=== PATIENT | female | born 1985 | race Caucasian/White ===

== ENCOUNTER → 2018-01-07 09:01 | Outpatient (CLI) | payer OTHER, SELFPAY ==
[2018-01-07 10:08] LABS: Alanine Aminotransferase 26 IU/L (9-52); Albumin 3.3 g/dL (3.5-5.0); Albumin Globulin Ratio 1.1 (1.0-2.8); Alkaline Phosphatase 133 U/L (38-126); Aspartate Aminotransferase 25 IU/L (14-36); BUN Creatinine Ratio 8.6 (6-22); Bilirubin Total 0.4 mg/dL (0.2-1.3); Calcium 9.3 mg/dL (8.4-10.2); Estimated Glomerular Filt Rate > 60.0 mL/min (>60); Globulin 2.9 g/dL (1.7-4.1); Glucose 81 mg/dL (70-100); HEMOLYSIS < 15 (0-50); Sodium 139 mmol/L (137-145); Total Protein 6.2 g/dL (6.3-8.2)
[2018-01-07 10:54] LABS: Creatinine Urine Random 26.8 mg/dL
[2018-01-07 11:01] LABS: Microalbumi Creatinin Ratio Ur 22.3 ug/mg CR (<30); Microalbumin Urine Random < 0.6 mg/dL (0-1.6)
== END ==
PROVIDERS: PCP Family Medicine; Visit Provider Family Medicine
DX: O16.3 Unspecified maternal hypertension, third trimester (principal); Z34.03 Encounter for supervision of normal first pregnancy, third trimester; Z3A.37 37 weeks gestation of pregnancy
CPT/HCPCS: 36415; 80053; 82043; 82570

== ENCOUNTER 2018-01-17 20:39 | Outpatient (CLI) | payer OTHER, SELFPAY ==
[2018-01-17] MEDS: ZOLPIDEM 5 MG TABLET PO (23:00)
[2018-01-17] MEDS: OXYCODONE/ACETAMINOPHEN 5/325 TABLET 1 TAB PO (23:00)
== END 2018-01-17 23:00 | disposition home or self-care (01) ==
LOC: LABOR 23:48 → OB 01-18 08:52
PROVIDERS: PCP Family Medicine; Visit Provider Family Medicine
DX: Z34.03 Encounter for supervision of normal first pregnancy, third trimester (principal); Z3A.39 39 weeks gestation of pregnancy
CPT/HCPCS: 59025; 59050; G0378; G0379

== ENCOUNTER 2018-01-18 21:10 | Inpatient (IN) | payer OTHER, SELFPAY ==
[2018-01-18 23:31] LABS: Add Manual Diff / Slide Review NO; Basophils Percent Auto 0.2 % (0-2); Eosinophils Percent Auto 0.3 % (2-4); Hematocrit 34.2 % (36-46); Lymphocytes Percent Auto 10.8 % (25-40); Mean Corpuscular HGB Conc 35.1 % (30-36); Mean Corpuscular Hemoglobin 33.9 PG (26-34); Mean Corpuscular Volume 96.6 fL (80-100); Neutrophils Absolute Auto 7800 /uL (3000-5900); Neutrophils Percent Auto 81.7 % (50-75); Platelet Count 231 X10^3/uL (150-400); Red Blood Cell Count 3.54 X10^6/uL (4.0-5.2); Red Cell Distribution Width 13.9 % (11.6-14.8); White Blood Cell Count 9.5 X10^3/uL (4.5-11.0)
[2018-01-18 23:53] VITALS: BP 141/83
[2018-01-19] MEDS: fentaNYL 100 MCG/2 ML INJ 50 MCG IV (03:25)
[2018-01-19] MEDS: LACTATED RINGERS 1,000 ML 100 ML IV (07:22)
[2018-01-19] MEDS: miSOPROStol 200 MCG TABLET 800 MCG PR (16:45)
--- NOTE | 2018-01-19 16:51 | PM.OBHP.1 ---
OB HPI History of Present Illness Chief complaint: LABOR AND DELIVERY Narrative: Martita Beltran is a 32 year old female who presents at 39 and 2 7 weeks gestation in spontaneous labor. Maternal history is significant for a blood type of O positive, antibody negative, rubella immune, serology nonreactive, gonorrhea and Chlamydia negative hepatitis B negative, group B strep negative HIV negative with otherwise unremarkable history. Patient was intact at the time of presentation. Evaluation Evaluation Laboratory results: Laboratory Tests 01/18/18 01/18/18 23:15 23:15 WBC 9.5 RBC 3.54 L Hgb 12.0 Hct 34.2 L MCV 96.6 MCH 33.9 MCHC 35.1 RDW 13.9 Plt Count 231 Neut % (Auto) 81.7 H Lymph % (Auto) 10.8 L [place] % (Auto) 7.0 Eos % (Auto) 0.3 L Baso % (Auto) 0.2 Neut # (Auto) 7800 H Blood Type O Positive Antibody Screen Negative [facility] Medical History Ruptured ovarian cyst (Acute) Social History marital status: household members: spouse lives independently: Yes education level: college occupational status: employed Smoking Status: Never smoker Meds Home Medications Medication Instructions Recorded Confirmed Type breast pump [Pump In Style 01/18/18 01/18/18 History Advanced] Allergies Allergy/AdvReac Type Severity Reaction Status Date / Time No Known Drug Allergies Allergy Verified 01/17/18 23:56 Review of Systems Review of Systems All systems reviewed & are unremarkable except as noted in HPI and below Exam Vital Signs (past 8 hours): GENERAL: Well-developed well-nourished woman, who had received epidural at the time of this exam, comfortable HEENT: Normocephalic, atraumatic, pupils equal and reactive to light and accommodation. Extraocular movements are intact. Tympanic membranes are clear without erythema. Neck supple, no lymphadenopathy. LUNG: Clear to auscultation bilaterally. No wheeze or crackles or rhonchi. No increased work in breathing. CV: Regular rate and rhythm. No murmurs rubs or gallops. ABDOMEN: GRAVID AFFECT: Alert and oriented X3. Conversational and appropriate. Sterile vaginal exam: Patient was 6-7 at 9:00 a.m. in the morning, 90% effaced, -2 station heart rate was category 2 Artificial rupture of membranes at this time, with return of clear fluid Objective Labs Result Diagrams: 01/18/18 23:15 Labs: Laboratory Results - last 24 hr 01/18/18 01/18/18 23:15 23:15 WBC 9.5 RBC 3.54 L Hgb 12.0 Hct 34.2 L MCV 96.6 MCH 33.9 MCHC 35.1 RDW 13.9 Plt Count 231 Neut % (Auto) 81.7 H Lymph % (Auto) 10.8 L [place] % (Auto) 7.0 Eos % (Auto) 0.3 L Baso % (Auto) 0.2 Neut # (Auto) 7800 H Blood Type O Positive Antibody Screen Negative Assessment and Plan (1) Active labor at term: Problem details: TERM , IN ACTIVE LABOR. ANTICIPATE SPONTANEOUS VAGINAL DELIVERY. ARTIFICIAL RUPTURE OF MEMBRANES AT APPROXIMATELY 9:00 A.M. WITH RETURN OF CLEAR FLUID PITOCIN STARTED AT APPROXIMATELY 0 500 CONTRACTIONS WERE DECREASING IN FREQUENCY Current visit: Yes Status: Acute
[2018-01-19] MEDS: OXYTOCIN PREMIX 30 UNIT/500 ML PLAST..BAG 250 UNIT IV (17:00)
--- NOTE | 2018-01-19 17:49 | P.HPOB_ITS ---
OB HPI History of Present Illness Chief complaint: LABOR AND DELIVERY Narrative: Martita Beltran is a 32 year old female who presents at 39 and 2 7 weeks gestation in spontaneous labor. Maternal history is significant for a blood type of O positive, antibody negative, rubella immune, serology nonreactive, gonorrhea and Chlamydia negative hepatitis B negative, group B strep negative HIV negative with otherwise unremarkable history. Patient was intact at the time of presentation. Evaluation Evaluation Laboratory results: Laboratory Tests 01/18/18 01/18/18 23:15 23:15 WBC 9.5 RBC 3.54 L Hgb 12.0 Hct 34.2 L MCV 96.6 MCH 33.9 MCHC 35.1 RDW 13.9 Plt Count 231 Neut % (Auto) 81.7 H Lymph % (Auto) 10.8 L [place] % (Auto) 7.0 Eos % (Auto) 0.3 L Baso % (Auto) 0.2 Neut # (Auto) 7800 H Blood Type O Positive Antibody Screen Negative [facility] Medical History Ruptured ovarian cyst (Acute) Social History marital status: household members: spouse lives independently: Yes education level: college occupational status: employed Smoking Status: Never smoker Meds Home Medications Medication Instructions Recorded Confirmed Type breast pump [Pump In Style 01/18/18 01/18/18 History Advanced] Allergies Allergy/AdvReac Type Severity Reaction Status Date / Time No Known Drug Allergies Allergy Verified 01/17/18 23:56 Review of Systems Review of Systems All systems reviewed & are unremarkable except as noted in HPI and below Exam Vital Signs (past 8 hours): GENERAL: Well-developed well-nourished woman, who had received epidural at the time of this exam, comfortable HEENT: Normocephalic, atraumatic, pupils equal and reactive to light and accommodation. Extraocular movements are intact. Tympanic membranes are clear without erythema. Neck supple, no lymphadenopathy. LUNG: Clear to auscultation bilaterally. No wheeze or crackles or rhonchi. No increased work in breathing. CV: Regular rate and rhythm. No murmurs rubs or gallops. ABDOMEN: GRAVID AFFECT: Alert and oriented X3. Conversational and appropriate. Sterile vaginal exam: Patient was 6-7 at 9:00 a.m. in the morning, 90% effaced , -2 station heart rate was category 2 Artificial rupture of membranes at this time, with return of clear fluid Objective Labs Result Diagrams: 01/18/18 23:15 Labs: Laboratory Results - last 24 hr 01/18/18 01/18/18 23:15 23:15 WBC 9.5 RBC 3.54 L Hgb 12.0 Hct 34.2 L MCV 96.6 MCH 33.9 MCHC 35.1 RDW 13.9 Plt Count 231 Neut % (Auto) 81.7 H Lymph % (Auto) 10.8 L [place] % (Auto) 7.0 Eos % (Auto) 0.3 L Baso % (Auto) 0.2 Neut # (Auto) 7800 H Blood Type O Positive Antibody Screen Negative Assessment and Plan (1) Active labor at term: Problem details: TERM , IN ACTIVE LABOR. ANTICIPATE SPONTANEOUS VAGINAL DELIVERY. ARTIFICIAL RUPTURE OF MEMBRANES AT APPROXIMATELY 9:00 A.M. WITH RETURN OF CLEAR FLUID PITOCIN STARTED AT APPROXIMATELY 0 500 CONTRACTIONS WERE DECREASING IN FREQUENCY Current visit: Yes Status: Acute
--- NOTE | 2018-01-19 17:55 | P.PCNOB_ITS ---
Narrative: Patient is a 32-year-old who presented in active labor. Patient is labor had started the evening prior. She had been seen in the labor and delivery suite the evening prior and was closed. At the time of presentation 12:00 p.m. later she was 4 cm dilated. She was admitted in active labor. Patient labored until approximately 0 5 am which she did receive an epidural. Her contractions slowed down substantially and oxytocin was started at that time and continued throughout labor. Artificial rupture of membrane was performed at approximately 9:00 a.m. with return of clear fluid. Patient continued to labor down without event until approximately 1:30 p.m. when she began stage II of labor. Patient pushed in multiple positions until approximately the 15 50. At that time it was felt that the patient was exhausted, and would benefit from vacuum assistance. Vacuum was applied without event and head was brought down to the perineum. Patient pushed several times without movement of the head the VAC was reapplied the head, and the remainder of the body was delivered without difficulty. Infant passed easily under the shoulders. Placenta delivered shortly there after. However, patient continued to have bleeding and after manual evacuation of the uterus, was found to have some remaining small pieces of placenta in the uterus. At that point, and due to significant bleeding, bivalve speculum was inserted, cervix was grasped with a ring forceps, and a large curette was used to gently remove remaining placental clot from the uterus. Patient tolerated this procedure well. Bleeding did decrease substantially after this. Patient sustained a labial tear which was repaired with 4 0 chromic, as well as a vaginal second-degree tear which was repaired with 3 0 chromic. Hemostasis was achieved. Patient tolerated the procedure well. Estimated blood loss approximately 400 cc Pitocin bolus given after delivery of . Patient also had 800 mcg of Cytotec administered per rectum due to bleeding. At the time of this dictation , bleeding had decreased substantially. Plan for aftercare: Patient to the center was care instructions.
[2018-01-19] MEDS: CEFOTETAN 2 GM/50 ML PIGGYBACK IV (18:18)
[2018-01-20] MEDS: IBUPROFEN 600 MG TABLET PO ×4 (02:56→19:18)
[2018-01-20] MEDS: DOCUSATE 250 MG CAPSULE PO (09:48)
[2018-01-20] MEDS: PRENATAL VIT,CALC/IRON/FOLIC 1 TABLET 1 TAB PO (09:48)
[2018-01-20] MEDS: LANOLIN OINT 7 GM 1 APPLIC TOP (12:57)
--- NOTE | 2018-01-20 15:10 | PM.DS.1 ---
History of Present Illness Chief complaint: LABOR AND DELIVERY Narrative: See below Discharge Providers Date of admission: 01/18/18 22:23 Primary care physician: Katie Lipscomb MD Discharge provider: Katie Lipscomb MD Summary Discharge Diagnosis: Status post spontaneous vaginal delivery Hospital Course: Martita Beltran is a 32 year old female who presented at 39 and 2 7 weeks gestation in spontaneous labor. Patient subsequently delivered a healthy female weighing 7 lb 6 oz with vacuum assistance due to maternal exhaustion. Apgars were 9 and 9. , Patient did require manual evacuation of the uterus, and a curette, due to a small amount of retained products. Bleeding did stop. On day 1. Bleeding was minimal. The patient was nursing well, and was felt safe to discharge home. Patient will be seen by primary care provider with her infant the day after discharge. Maternal history is significant for a blood type of O positive, antibody negative, rubella immune, serology nonreactive, gonorrhea and Chlamydia negative hepatitis B negative, group B strep negative HIV negative with otherwise unremarkable history. Patient was intact at the time of presentation. Exam Vital Signs (past 8 hours): GENERAL: Well-developed well-nourished woman in no acute distress. HEENT: Normocephalic, atraumatic, pupils equal and reactive to light and accommodation. Extraocular movements are intact. LUNG: Clear to auscultation bilaterally. No wheeze or crackles or rhonchi. No increased work in breathing. CV: Regular rate and rhythm. No murmurs rubs or gallops. ABDOMEN: SOFT APPROPRIATELY TENDER, AFFECT: Alert and oriented X3. Conversational and appropriate. Objective Labs Result Diagrams: 01/18/18 23:15 Discharge Plan Discharge Plan Patient Disposition: Home, Self-Care Discharge Med Rec/Prescriptions Prescriptions: New oxycodone-acetaminophen 5-325 mg Tablet 2 tab PO Q4HR Qty: 30 RF: 0 ibuprofen 600 mg Tablet 600 mg PO 3-4XD PRN (Reason: pain) Qty: 30 RF: 0 docusate sodium 250 mg Capsule 250 mg PO DAILY Qty: 30 RF: 0 No Action breast pump [Pump In Style Advanced] device .ROUTE .MEDSUPPLY RF: 0 Provider Discharge Instructions Diet: Diet as Tolerated Activity: as tolerated Visit Report/Discharge Packet Instructions: DI for Labor and Delivery, Vaginal Visit Report Forms: Stroke Signs & Symptoms Discharge Data Primary Care Provider: Lindsay Moore Attending Provider: Katie Lipscomb Admreese Date/Time: 01/18/18 22:23
[2018-01-20 18:08] VITALS: BP 115/81; PULSE 86; RESP 18; TEMP 36.8
== END 2018-01-20 19:40 | disposition home or self-care (01) | DRG 768 ==
PROVIDERS: Admitting Provider Family Medicine; PCP Family Medicine; Visit Provider Family Medicine
DX: O75.81 Maternal exhaustion complicating labor and delivery (principal); Z3A.39 39 weeks gestation of pregnancy; Z37.0 Single live birth; O70.1 Second degree perineal laceration during delivery; O72.2 Delayed and secondary postpartum hemorrhage
CPT/HCPCS: 01967; 59050; 59400; 76815; 85025; 86850; 86900; 86901; G0378; G0379; J2590; J3010; S0191

== ENCOUNTER → 2025-04-04 14:08 | Outpatient (CLI) | payer OTHER, SELFPAY ==
[2025-04-04 14:53] LABS: Add Manual Diff / Slide Review NO; Hematocrit 38.0 % (36-46); Hemoglobin 13.2 g/dL (12.0-16.0); Lymphocytes Absolute Auto 1200 /uL (1100-4500); Mean Corpuscular HGB Conc 34.7 % (30-36); Mean Corpuscular Hemoglobin 32.6 PG (26-34); Mean Corpuscular Volume 93.9 fL (80-100); Platelet Count 281 X10^3/uL (150-400)
[2025-04-04 15:06] LABS: HEMOLYSIS < 15 (0-50); Iron 88 ug/dL (37-170)
[2025-04-04 15:09] LABS: Hemoglobin A1C% w Est Avg Glu 4.7 % (4.0-6.0)
[2025-04-04 15:16] LABS: Cholesterol 213 mg/dL (140-199); HDL Cholesterol 54 mg/dL (40-60); Triglycerides 199 mg/dL (35-150)
[2025-04-04 15:18] LABS: Percent Iron Saturation 28 % (15-50); Total Iron Binding Capacity 314 ug/dL (265-497); Transferrin 266 mg/dL (206-381)
[2025-04-04 15:36] LABS: TSH w/ Reflex to FT4 0.84 uIU/mL (0.47-4.68)
[2025-04-04 15:53] LABS: Ferritin 19 ng/mL (6-137)
[2025-04-04 17:52] LABS: Follicle Stimulating Hormone 4.54 mIU/mL
== END ==
PROVIDERS: PCP Family Medicine; Referring Provider Family Medicine; Visit Provider Family Medicine
DX: R63.5 Abnormal weight gain (principal); Z13.1 Encounter for screening for diabetes mellitus; Z13.220 Encounter for screening for lipoid disorders; R53.83 Other fatigue
CPT/HCPCS: 36415; 80061; 82672; 82728; 83001; 83036; 83540; 83550; 84443; 85025